=== PATIENT | male | born 1945 | race African-American/Black ===

== ENCOUNTER 2024-01-03 23:51 | Emergency (ER) | payer OTHER ==
[~2024-01-03] VITALS: Ht 188 cm; Wt 86.2 kg
[2024-01-03 23:53] VITALS: BP 170/96; PULSE 74; RESP 16; TEMP 97.9; O2SAT 98
[2024-01-04 00:13] VITALS: O2SAT 98
[2024-01-04 02:22] LABS: BASOPHILS % (AUTO) 0.2 % (0.0-2.0); EOSINOPHILS # (AUTO) 0.1 K/uL (0-0.4); EOSINOPHILS % (AUTO) 0.6 % (0.0-4.0); HEMATOCRIT 40.5 % (36-52); HEMOGLOBIN 13.4 g/dL (12.0-18.0); LYMPHOCYTES # (AUTO) 1.4 K/uL (2.0-11.5); LYMPHOCYTES % (AUTO) 10.7 % (20.5-51.1); MEAN CORPUSCULAR HEMOGLOBIN 30 pg (27-31); MEAN CORPUSCULAR HGB CONC 33 g/dL (33-37); MEAN CORPUSCULAR VOLUME 90.3 fL (80-94); MONOCYTES # (AUTO) 0.7 K/uL (0.8-1.0); MONOCYTES % (AUTO) 5.3 % (1.7-9.3); NEUTROPHILS # (AUTO) 10.9 K/uL (1.8-7.7); NEUTROPHILS % (AUTO) 83.2 % (42.2-75.2); PLATELET COUNT (AUTO) 140 K/uL (140-450); RED BLOOD CELL COUNT(AUTO) 4.48 MIL/uL (4.20-6.10); RED CELL DISTRIBUTION WIDTH 13.2 % (11.6-13.7); WHITE BLOOD COUNT (AUTO) 13.1 K/uL (4.8-10.8)
[2024-01-04 02:26] LABS: APPEARANCE,URINE SL CLOUDY (CLEAR); BILIRUBIN,URINE NEGATIVE (NEGATIVE); BLOOD, URINE 3+ (NEGATIVE); COLOR,URINE RED (YELLOW); LEUKOCYTE ESTERASE ,URINE TRACE (NEGATIVE); NITRITE, URINE NEGATIVE (NEGATIVE); PROTEIN,URINE TRACE (NEGATIVE); UGLUCOSE 1+ (NEGATIVE); UROBILINOGEN,URINE 0.2 EU/dL (0.2 - 1)
[2024-01-04] MEDS: ONDANSETRON 4 MG/2 ML VIAL IVP ONE (02:27)
[2024-01-04 02:32] LABS: BACTERIA,URINE 1+ /HPF (None Seen); MUCUS,URINE None Seen /LPF (None Seen); RBC,URINE 20-50 /HPF (0-5); SQUAMOUS EPITHELIAL CELL,UR 0-3 (FEW) /LPF (0-3 (FEW)); WBC,URINE 0-5 /HPF (0-5)
[2024-01-04 02:35] LABS: ANION GAP 10.5 (8-16); CALCIUM 9.6 mg/dL (8.5-10.1); CHLORIDE 97 mmol/L (98-107); CREATININE 1.3 mg/dL (0.6-1.3); GLUCOSE 237 mg/dL (74-106); POTASSIUM 3.5 mmol/L (3.5-5.1); SODIUM SERUM 133 mmol/L (136-145); UREA NITROGEN, BLOOD 10 mg/dL (7-18)
[2024-01-04 02:40] LABS: ALBUMIN 3.6 g/dL (3.4-5.0); BILIRUBIN,DIRECT 0.2 mg/dL (0.0-0.3); TOTAL BILIRUBIN 0.5 mg/dL (0.0-1.0); TOTAL PROTEIN, SERUM 8.4 g/dL (6.4-8.2)
[2024-01-04] MEDS: MORPHINE SULFATE 4 MG/ML SYR IVP ONE (05:13)
[2024-01-04] MEDS ORDERED: TAMS0.4C96 PO (06:17)
[2024-01-04] MEDS ORDERED: ONDA-188 PO (06:18)
[2024-01-04 06:43] VITALS: BP 168/85; PULSE 78; RESP 15; TEMP 99.3; O2SAT 98
[2024-01-04] MEDS ORDERED: TAMSULOSIN 0.4 MG CAP PO SCH (08:30)
== END 2024-01-04 06:43 | disposition home or self-care (01) ==
LOC: MED 23:51
DX: N13.2 Hydronephrosis with renal and ureteral calculous obstruction (principal); K83.8 Other specified diseases of biliary tract; R31.9 Hematuria, unspecified; E11.9 Type 2 diabetes mellitus without complications; Z85.46 Personal history of malignant neoplasm of prostate; Z98.890 Other specified postprocedural states; Z79.899 Other long term (current) drug therapy
CPT/HCPCS: 36415; 74177; 76705; 80048; 80076; 81001; 83690; 85025; 87086; 96374; 99285; J2405; Q9967